=== PATIENT | female | born 1960 | race Two or more races ===

== ENCOUNTER → 2025-01-02 | Outpatient (CLI) | payer OTHER, SELFPAY ==
--- NOTE | 2025-01-02 08:30 | XR_ITS ---
Examination: Screening digital mammography, bilateral Computer aided detection 3-D breast Tomosynthesis, bilateral Date and time of exam: January 02, 2025 0828 hours Compared to mammograms dating to November 03, 2022 Indication: Screening Technique: Nonmagnified MLO, CC views of the breasts to been obtained, reconstructed from 3-D Tomosynthesis images. R2 computer aided detection program utilized for evaluation of suspicious masses and/or abnormal calcifications. 3-D Tomosynthesis images obtained. Findings: The breasts are heterogeneously dense, which may obscure small masses 7 mm nodule 12:00 position right breast Benign calcifications Impression: BI-RADS Category 0: Incomplete: Need additional imaging evaluation 7 mm nodule 12:00 position right breast, recommend follow-up spot tomographic views of this nodule as well as bilateral breast sonography to complete the workup
== END | disposition home or self-care (01) ==
PROVIDERS: Referring Provider Nurse Practitioner Family; Visit Provider Nurse Practitioner Family
DX: Z12.31 Encounter for screening mammogram for malignant neoplasm of breast (principal); N63.15 Unspecified lump in the right breast, overlapping quadrants
CPT/HCPCS: 77063; 77067

== ENCOUNTER → 2025-02-20 | Outpatient (CLI) | payer OTHER, SELFPAY ==
--- NOTE | 2025-02-20 | XR_ITS ---
Examination: Diagnostic digital mammography, unilateral, right Computer aided detection 3-D breast Tomosynthesis, unilateral Date and time of exam: February 20, 2025 1354 hours INDICATIONS: Mammogram January 02, 2025 7 mm nodule 12:00 position right breast Technique: Nonmagnified MLO, CC views of the right breast have been obtained, reconstructed from 3-D Tomosynthesis images. R2 computer aided detection program utilized for evaluation of suspicious masses and/or abnormal calcifications. 3-D Tomosynthesis images obtained. Findings: The breast is heterogeneously dense, which may obscure small masses No recurrent Spot compression cc view possible architectural distortion nipple level right breast CC view posterior depth Impression: BI-RADS category 3: Probably benign findings One additional 6 month right mammogram follow-up is needed to exclude early architectural distortion as above
--- NOTE | 2025-02-20 13:30 | XR_ITS ---
Examination: Breast ultrasound complete, bilateral Date and time of exam: February 20, 2025 1337 hours INDICATIONS: Mammogram January 02, 2025 7 mm nodule 12:00 position right breast Technique: Real-time grayscale ultrasonographic imaging bilateral breasts, including all 4 quadrants as well as nipple retroareolar and axillary regions. Findings: Sonographic images right breast 12:00 nodule lobular margins 7 x 9 mm 4:00 cyst 4 x 3 mm 10:00 cyst 13 x 7 mm Sonographic images left breast 2:00 cyst 7 x 12 mm 6:00 cyst 9 x 7 mm 8:00 cyst 8 x 8 mm No solid nodules IMPRESSION: BI-RADS Category 3: Probably benign findings One additional 6 month right breast sonogram follow-up is needed to document stability of 12:00 nodule described above
== END | disposition home or self-care (01) ==
PROVIDERS: PCP Nurse Practitioner Family; Referring Provider Nurse Practitioner Family; Visit Provider Nurse Practitioner Family
DX: R92.331 Mammographic heterogeneous density, right breast (principal); N63.15 Unspecified lump in the right breast, overlapping quadrants
CPT/HCPCS: 76641; 77061; 77065; G0279